=== PATIENT | female | born 1935 | race Caucasian/White ===

== ENCOUNTER 2025-02-19 06:38 | Inpatient (IN) ==
[2025-02-19] MEDS ORDERED: IOPAMIDOL 100 ML BOTTLE IV ONE (06:39)
[2025-02-19] MEDS: IPRATROPIUM/ALBUTEROL 3 ML AMPUL.NEB NEB ONE ×2 (06:57→08:18)
[2025-02-19] MEDS: methylPREDNISolone SOD SUCC 125 MG/2 ML VIAL IV ONE (07:04)
[2025-02-19] MEDS: MAGNESIUM SULFATE 2 GM/50 ML BAG IV ONE (07:04)
[2025-02-19] MEDS: 0.9 % SODIUM CHLORIDE 500 ML IV ONE (07:08)
[2025-02-19 07:53] LABS: ALT/SGPT 14 U/L (<40); AST/SGOT 22 U/L (<32); Albumin 3.4 gm/dL (3.2-5.2); Alkaline Phosphatase 95 U/L (39-117); Bilirubin,Total 0.2 mg/dL (0.1-1.0); Blood Urea Nitrogen 28 mg/dL (8-23); Calcium 9.6 mg/dL (8.6-10.4); Carbon Dioxide 28 mmol/L (22-30); Chloride 103 mmol/L (96-108); Globulin 3.3 gm/dL (2.2-3.7); Glomerular Filtration Rate 57; Glucose 126 mg/dL (70-105); Potassium 4.2 mmol/L (3.3-5.1); Sodium 144 mmol/L (133-145)
[2025-02-19 07:53] LABS: INR 0.9 (0.9-1.1); Prothrombin Time 12.6 sec (11.9-14.5)
[2025-02-19 07:54] LABS: Basophils # (Auto) 0.03 K/mcL (0.00-0.30); Basophils % (Auto) 0.1 % (0.0-2.0); Eosinophils # (Auto) 0.04 K/mcL (0.00-0.70); Eosinophils % (Auto) 0.1 % (0.0-7.0); Hematocrit 36.5 % (34.1-44.9); Hemoglobin 10.5 g/dL (11.2-15.7); Lymphocytes # (Auto) 2.05 K/mcL (1.50-4.80); Lymphocytes % (Auto) 7.5 % (15.5-49.0); Mean Cell Volume 87.3 fL (80.0-100.0); Mean Corpuscular HGB Conc 28.8 g/dL (31.0-36.0); Mean Platelet Volume 12.6 fL (8.8-12.5); Monocytes # (Auto) 2.06 K/mcL (0.10-0.90); Monocytes % (Auto) 7.6 % (1.0-12.0); Neutrophils % (Auto) 80.6 % (38.0-78.0); Platelet Count 258 K/mcL (140-440); RBC 4.18 M/mcL (3.59-5.38); Red Cell Distribution Width 16.9 % (11.5-14.5); WBC 27.2 K/mcL (4.5-11.0)
[2025-02-19] MEDS: FUROSEMIDE 20 MG/2 ML VIAL IV ONE (08:46)
[2025-02-19] MEDS: cefTRIAXone 2 GM in DEXTROSE 5% IN WATER 50 ML IV ONE (09:22)
[2025-02-19 09:26] LABS: Appearance,Urine Clear (Clear); Bilirubin,Urine Negative (Negative); Color,Urine Yellow; Glucose,Urine (UA) Negative (Negative); Ketones,Urine Negative (Negative); Leukocyte Esterase,Urine Negative /uL (Negative); Nitrate,Urine Negative (Negative); PH,Urine 5.5 (5.0-9.0); Protein,Urine Negative (Negative); Specific Gravity,Urine 1.015 (1.000-1.035); Urine Blood Trace-lysed ery/mcL (Negative); Urine Hyaline Cast 25 /lph (0-2); Urine RBC 0 /hpf (0-3); Urine Squamous Epithelial Cell 0 /hpf (0-4); Urine WBC 0 /hpf (0-4); Urobilinogen,Urine Normal
[2025-02-19] MEDS: AZITHROMYCIN 500 MG in 0.9 % SODIUM CHLORIDE 250 ML IV ONE (09:53)
[2025-02-19] MEDS: DEXAMETHASONE 10 MG/ML VIAL IV ONE (11:02)
[2025-02-19] MEDS ORDERED: guaiFENesin/DEXTROMETHORPHAN 5ML UD CUP PO PRN (11:59)
[2025-02-19] MEDS ORDERED: ONDANSETRON 4 MG/2 ML VIAL IV PRN (11:59)
[2025-02-19] MEDS ORDERED: LACTULOSE 20 GM/30 ML ORAL.SOL PO PRN (11:59)
[2025-02-19] MEDS ORDERED: SENNOSIDES 1 TABLET PO PRN (11:59)
[2025-02-19] MEDS: LEVALBUTEROL 1.25 MG/3 ML AMPUL.NEB NEB SCH (12:04)
[2025-02-19] MEDS: REMDESIVIR 200 MG in 0.9 % SODIUM CHLORIDE 250 ML IV ONE (12:17)
[2025-02-19] MEDS: PIPERACILLIN SODIUM/TAZOBACTAM 3.375 GM in DEXTROSE 5% IN WATER 50 ML IV SCH (13:07)
[2025-02-19] MEDS ORDERED: ALBUTEROL SULFATE 60 PUFF INHALER INH PRN (13:37)
[2025-02-19] MEDS ORDERED: PANTOPRAZOLE 40 MG TABLET PO PRN (13:41)
[2025-02-19] MEDS: FUROSEMIDE 40 MG/4 ML VIAL IV SCH (14:46)
[2025-02-19] MEDS: 0.9 % SODIUM CHLORIDE 10 ML SYRINGE IV SCH (15:01)
[2025-02-19] MEDS ORDERED: 0.9 % SODIUM CHLORIDE 10 ML SYRINGE IV PRN (16:11)
[2025-02-19] MEDS: PIPERACILLIN SODIUM/TAZOBACTAM 3.375 GM in DEXTROSE 5% IN WATER 100 ML IV SCH (17:22)
[2025-02-19] MEDS: ACETAMINOPHEN 325 MG TABLET PO PRN (17:22)
[2025-02-19] MEDS: PANTOPRAZOLE 40 MG VIAL IV SCH (17:22)
[2025-02-19] MEDS: METOPROLOL TARTRATE 5 MG/5 ML VIAL IV SCH (17:42)
[2025-02-19] MEDS: METOPROLOL TARTRATE 5 MG/5 ML VIAL IV ONE (17:55)
[2025-02-19] MEDS: DILTIAZEM 125 MG/25 ML VIAL IV ONE (18:33)
[2025-02-19] MEDS ORDERED: DILTIAZEM 125 MG in DEXTROSE 5% IN WATER 100 ML IV PRN ×2 (19:27→19:30)
[2025-02-19] MEDS: DILTIAZEM 125 MG in DEXTROSE 5% IN WATER 100 ML IV SCH (20:53)
[2025-02-19] MEDS: APIXABAN 5 MG TABLET PO SCH (21:00)
[2025-02-19] MEDS: DOCUSATE SODIUM 100 MG CAPSULE PO SCH (21:00)
[2025-02-19] MEDS ORDERED: HEPARIN 10 UNITS/ML 5ML FLUSH IV SCH ×3 (21:00)
[2025-02-19] MEDS: FUROSEMIDE 20 MG TABLET PO SCH (21:00)
[2025-02-19] MEDS ORDERED: 0.9 % SODIUM CHLORIDE 10 ML SYRINGE IV SCH ×3 (21:00)
[2025-02-19] MEDS: FLUTICASONE/SALMETEROL 500/50 INHALER #14 INH SCH (21:01)
[2025-02-20 06:06] LABS: ALT/SGPT 11 U/L (<40); AST/SGOT 16 U/L (<32); Albumin 2.9 gm/dL (3.2-5.2); Alkaline Phosphatase 76 U/L (39-117); Bilirubin,Total < 0.2 mg/dL (0.1-1.0); Blood Urea Nitrogen 28 mg/dL (8-23); Calcium 8.7 mg/dL (8.6-10.4); Carbon Dioxide 33 mmol/L (22-30); Chloride 101 mmol/L (96-108); Globulin 2.8 gm/dL (2.2-3.7); Glomerular Filtration Rate 50; Glucose 116 mg/dL (70-105); Phosphorous 3.2 mg/dL (2.5-4.5); Potassium 3.9 mmol/L (3.3-5.1); Sodium 141 mmol/L (133-145)
[2025-02-20] MEDS: POTASSIUM CHLORIDE 10 MEQ TABLET PO SCH (07:22)
[2025-02-20] MEDS: PANTOPRAZOLE 40 MG TABLET PO SCH (07:31)
[2025-02-20 07:37] LABS: Basophils # (Auto) 0.04 K/mcL (0.00-0.30); Basophils % (Auto) 0.3 % (0.0-2.0); Eosinophils # (Auto) 0 K/mcL (0.00-0.70); Eosinophils % (Auto) 0 % (0.0-7.0); Hemoglobin 8.8 g/dL (11.2-15.7); Lymphocytes # (Auto) 0.76 K/mcL (1.50-4.80); Lymphocytes % (Auto) 4.9 % (15.5-49.0); Mean Cell Volume 84.3 fL (80.0-100.0); Mean Corpuscular HGB Conc 29.3 g/dL (31.0-36.0); Monocytes # (Auto) 1.04 K/mcL (0.10-0.90); Monocytes % (Auto) 6.6 % (1.0-12.0); Neutrophils % (Auto) 85.8 % (38.0-78.0); Platelet Count 200 K/mcL (140-440); RBC 3.56 M/mcL (3.59-5.38); Red Cell Distribution Width 16.9 % (11.5-14.5); WBC 15.7 K/mcL (4.5-11.0)
[2025-02-20] MEDS ORDERED: 0.9 % SODIUM CHLORIDE 10 ML SYRINGE IV PRN ×2 (07:41→11:00)
[2025-02-20] MEDS ORDERED: ALTEPLASE 2 MG VIAL IV PRN (07:41)
[2025-02-20] MEDS ORDERED: ENOXAPARIN 40 MG/0.4 ML SYRINGE SQ SCH (09:00)
[2025-02-20] MEDS: DEXAMETHASONE 4 MG TABLET PO SCH (09:20)
[2025-02-20] MEDS: METOPROLOL SUCCINATE 50 MG TAB.XL.24H PO SCH (09:21)
[2025-02-20] MEDS: 0.9 % SODIUM CHLORIDE 10 ML SYRINGE IV SCH (09:26)
[2025-02-20] MEDS: TIOTROPIUM BROMIDE 18 MCG INHALANT INH SCH (09:31)
[2025-02-20] MEDS: HEPARIN 10 UNITS/ML 5ML FLUSH IV SCH ×2 (10:22→10:30)
[2025-02-20] MEDS: REMDESIVIR 100 MG in 0.9 % SODIUM CHLORIDE 250 ML IV SCH (10:28)
[2025-02-20] MEDS ORDERED: LIDOCAINE 1% 10 ML VIAL SQ ONE (11:45)
[2025-02-20] MEDS: IPRATROPIUM/ALBUTEROL 3 ML AMPUL.NEB NEB PRN (15:22)
[2025-02-20] MEDS: IPRATROPIUM/ALBUTEROL 3 ML AMPUL.NEB NEB SCH (18:52)
[2025-02-20] MEDS ORDERED: 0.9 % SODIUM CHLORIDE 10 ML SYRINGE IV SCH (21:00)
[2025-02-20] MEDS: 0.9 % SODIUM CHLORIDE 10 ML SYRINGE IV PRN (22:13)
[2025-02-21 05:55] LABS: C-Reactive Protein 5.1 mg/dL (0.03-0.80)
[2025-02-21 05:58] LABS: ALT/SGPT 11 U/L (<40); AST/SGOT 14 U/L (<32); Albumin 2.7 gm/dL (3.2-5.2); Alkaline Phosphatase 70 U/L (39-117); Bilirubin,Direct < 0.2 mg/dL (0-0.3); Bilirubin,Total 0.2 mg/dL (0.1-1.0); Blood Urea Nitrogen 29 mg/dL (8-23); Calcium 8.9 mg/dL (8.6-10.4); Carbon Dioxide 33 mmol/L (22-30); Chloride 106 mmol/L (96-108); Globulin 2.6 gm/dL (2.2-3.7); Glomerular Filtration Rate 57; Glucose 96 mg/dL (70-105); Lactate Dehydrogenase 172 U/L (135-225); Potassium 3.7 mmol/L (3.3-5.1); Sodium 147 mmol/L (133-145); Triglycerides 31 mg/dL (<150); Uric Acid 4.1 mg/dL (2.5-8.0)
[2025-02-21 08:38] LABS: Basophils # (Auto) 0.04 K/mcL (0.00-0.30); Basophils % (Auto) 0.4 % (0.0-2.0); Eosinophils # (Auto) 0 K/mcL (0.00-0.70); Eosinophils % (Auto) 0 % (0.0-7.0); Hematocrit 29.3 % (34.1-44.9); Hemoglobin 8.4 g/dL (11.2-15.7); Lymphocytes # (Auto) 0.95 K/mcL (1.50-4.80); Lymphocytes % (Auto) 8.7 % (15.5-49.0); Mean Cell Volume 87.2 fL (80.0-100.0); Mean Corpuscular HGB Conc 28.7 g/dL (31.0-36.0); Mean Platelet Volume 12.5 fL (8.8-12.5); Monocytes # (Auto) 1.12 K/mcL (0.10-0.90); Monocytes % (Auto) 10.3 % (1.0-12.0); Neutrophils % (Auto) 74.9 % (38.0-78.0); Platelet Count 183 K/mcL (140-440); RBC 3.36 M/mcL (3.59-5.38); WBC 10.9 K/mcL (4.5-11.0)
[2025-02-21] MEDS: cefTRIAXone 1 GM VIAL IV SCH (09:01)
[2025-02-21] MEDS: DEXAMETHASONE 10 MG/ML VIAL IV SCH (09:01)
[2025-02-21] MEDS: AZITHROMYCIN 500 MG in DEXTROSE 5% IN WATER 250 ML IV SCH (09:02)
[2025-02-21] MEDS: 0.45 % SODIUM CHLORIDE 1,000 ML IV SCH (09:16)
[2025-02-21] MEDS: POTASSIUM CHLORIDE 20 MEQ TABLET PO SCH (09:16)
[2025-02-21 16:50] LABS: Sodium 143 mmol/L (133-145)
[2025-02-22 06:38] LABS: ALT/SGPT 11 U/L (<40); AST/SGOT 16 U/L (<32); Albumin 2.6 gm/dL (3.2-5.2); Alkaline Phosphatase 69 U/L (39-117); Bilirubin,Direct < 0.2 mg/dL (0-0.3); Bilirubin,Total 0.2 mg/dL (0.1-1.0); Blood Urea Nitrogen 23 mg/dL (8-23); Calcium 9.1 mg/dL (8.6-10.4); Carbon Dioxide 34 mmol/L (22-30); Chloride 107 mmol/L (96-108); Globulin 2.6 gm/dL (2.2-3.7); Glomerular Filtration Rate 77; Glucose 82 mg/dL (70-105); Lactate Dehydrogenase 183 U/L (135-225); Phosphorous 2.9 mg/dL (2.5-4.5); Potassium 4.3 mmol/L (3.3-5.1); Sodium 146 mmol/L (133-145); Triglycerides 39 mg/dL (<150); Uric Acid 4.3 mg/dL (2.5-8.0)
[2025-02-22 07:38] LABS: Basophils # (Auto) 0.05 K/mcL (0.00-0.30); Basophils % (Auto) 0.5 % (0.0-2.0); Eosinophils # (Auto) 0.07 K/mcL (0.00-0.70); Eosinophils % (Auto) 0.6 % (0.0-7.0); Hematocrit 30.2 % (34.1-44.9); Hemoglobin 8.5 g/dL (11.2-15.7); Lymphocytes # (Auto) 1.63 K/mcL (1.50-4.80); Lymphocytes % (Auto) 15.1 % (15.5-49.0); Mean Cell Volume 87.5 fL (80.0-100.0); Mean Corpuscular HGB Conc 28.1 g/dL (31.0-36.0); Mean Platelet Volume 11.4 fL (8.8-12.5); Monocytes # (Auto) 1.07 K/mcL (0.10-0.90); Monocytes % (Auto) 9.9 % (1.0-12.0); Platelet Count 199 K/mcL (140-440); RBC 3.45 M/mcL (3.59-5.38); WBC 10.8 K/mcL (4.5-11.0)
[2025-02-22] MEDS: 0.45 % SODIUM CHLORIDE 1,000 ML IV SCH (08:20)
[2025-02-22] MEDS: AZITHROMYCIN 250 MG TABLET PO SCH (08:20)
[2025-02-22] MEDS: ALTEPLASE 2 MG VIAL IV SCH (13:13)
[2025-02-22] MEDS: CEFDINIR 300 MG CAPSULE PO SCH (21:36)
[2025-02-23 05:58] LABS: Basophils # (Auto) 0.01 K/mcL (0.00-0.30); Basophils % (Auto) 0.1 % (0.0-2.0); Eosinophils # (Auto) 0.18 K/mcL (0.00-0.70); Eosinophils % (Auto) 1.6 % (0.0-7.0); Hematocrit 29.7 % (34.1-44.9); Hemoglobin 8.5 g/dL (11.2-15.7); Lymphocytes # (Auto) 1.81 K/mcL (1.50-4.80); Lymphocytes % (Auto) 15.8 % (15.5-49.0); Mean Cell Volume 87.6 fL (80.0-100.0); Mean Corpuscular HGB Conc 28.6 g/dL (31.0-36.0); Mean Platelet Volume 12.1 fL (8.8-12.5); Monocytes # (Auto) 1.08 K/mcL (0.10-0.90); Monocytes % (Auto) 9.4 % (1.0-12.0); Neutrophils % (Auto) 65.7 % (38.0-78.0); Platelet Count 215 K/mcL (140-440); RBC 3.39 M/mcL (3.59-5.38); Red Cell Distribution Width 16.9 % (11.5-14.5); WBC 11.5 K/mcL (4.5-11.0)
[2025-02-23 06:32] LABS: ALT/SGPT 13 U/L (<40); AST/SGOT 17 U/L (<32); Albumin 2.5 gm/dL (3.2-5.2); Alkaline Phosphatase 70 U/L (39-117); Bilirubin,Direct < 0.2 mg/dL (0-0.3); Bilirubin,Total 0.2 mg/dL (0.1-1.0); Blood Urea Nitrogen 19 mg/dL (8-23); Calcium 8.9 mg/dL (8.6-10.4); Carbon Dioxide 31 mmol/L (22-30); Chloride 105 mmol/L (96-108); Globulin 2.6 gm/dL (2.2-3.7); Glomerular Filtration Rate 81; Glucose 74 mg/dL (70-105); Lactate Dehydrogenase 200 U/L (135-225); Potassium 4.1 mmol/L (3.3-5.1); Sodium 143 mmol/L (133-145); Triglycerides 35 mg/dL (<150); Uric Acid 4.6 mg/dL (2.5-8.0)
[2025-02-24 05:51] LABS: ALT/SGPT 14 U/L (<40); AST/SGOT 13 U/L (<32); Albumin 2.5 gm/dL (3.2-5.2); Alkaline Phosphatase 71 U/L (39-117); Bilirubin,Direct < 0.2 mg/dL (0-0.3); Bilirubin,Total 0.2 mg/dL (0.1-1.0); Blood Urea Nitrogen 22 mg/dL (8-23); Carbon Dioxide 34 mmol/L (22-30); Chloride 105 mmol/L (96-108); Globulin 2.4 gm/dL (2.2-3.7); Glomerular Filtration Rate 77; Glucose 89 mg/dL (70-105); Lactate Dehydrogenase 176 U/L (135-225); Phosphorous 3.8 mg/dL (2.5-4.5); Potassium 4.5 mmol/L (3.3-5.1); Sodium 142 mmol/L (133-145); Triglycerides 27 mg/dL (<150); Uric Acid 4.6 mg/dL (2.5-8.0)
[2025-02-24 06:24] LABS: Basophils # (Auto) 0.04 K/mcL (0.00-0.30); Basophils % (Auto) 0.3 % (0.0-2.0); Eosinophils # (Auto) 0.11 K/mcL (0.00-0.70); Hematocrit 28.1 % (34.1-44.9); Lymphocytes # (Auto) 1.31 K/mcL (1.50-4.80); Lymphocytes % (Auto) 11.3 % (15.5-49.0); Mean Cell Volume 87.3 fL (80.0-100.0); Mean Corpuscular HGB Conc 28.5 g/dL (31.0-36.0); Mean Platelet Volume 11.5 fL (8.8-12.5); Monocytes # (Auto) 1.12 K/mcL (0.10-0.90); Monocytes % (Auto) 9.7 % (1.0-12.0); Neutrophils % (Auto) 71.7 % (38.0-78.0); Platelet Count 215 K/mcL (140-440); RBC 3.22 M/mcL (3.59-5.38); WBC 11.6 K/mcL (4.5-11.0)
[2025-02-24] MEDS: DEXAMETHASONE 4 MG TABLET PO SCH (08:55)
[2025-02-24 11:22] VITALS: TEMP 98.1; O2SAT 96
== END 2025-02-24 11:36 | DRG 190 ==
LOC: ED 06:38 → ICU 11:42
PROVIDERS: ADMIT Internal Medicine; ATTEND Student in an Organized Health Care Education/Training Program

== ENCOUNTER 2025-06-13 02:33 | Inpatient (IN) ==
[2025-06-13] MEDS ORDERED: IOPAMIDOL 100 ML BOTTLE IV ONE (02:34)
[2025-06-13] MEDS: ALBUTEROL SULFATE 2.5 MG/3 ML NEBULIZER NEB ONE (02:50)
[2025-06-13] MEDS: ONDANSETRON 4 MG/2 ML VIAL IV ONE (03:00)
[2025-06-13 03:20] LABS: ALT/SGPT 8 U/L (<40); AST/SGOT 16 U/L (<32); Albumin 3.6 gm/dL (3.2-5.2); Albumin/Globulin Ratio 1.3 (1.0-2.3); Alkaline Phosphatase 94 U/L (39-117); Anion Gap 7.0 (8.0-16.0); Bilirubin,Total 0.2 mg/dL (0.1-1.0); Blood Urea Nitrogen 25 mg/dL (8-23); Calcium 9.3 mg/dL (8.6-10.4); Carbon Dioxide 32 mmol/L (22-30); Chloride 106 mmol/L (96-108); Globulin 2.8 gm/dL (2.2-3.7); Glucose 148 mg/dL (70-105); Potassium 3.6 mmol/L (3.3-5.1); Sodium 145 mmol/L (133-145)
[2025-06-13 03:21] LABS: Basophils # (Auto) 0.04 K/mcL (0.00-0.30); Basophils % (Auto) 0.1 % (0.0-2.0); Eosinophils # (Auto) 0.25 K/mcL (0.00-0.70); Eosinophils % (Auto) 0.8 % (0.0-7.0); Hematocrit 32.6 % (34.1-44.9); Hemoglobin 8.9 g/dL (11.2-15.7); Lymphocytes # (Auto) 2.81 K/mcL (1.50-4.80); Lymphocytes % (Auto) 8.7 % (15.5-49.0); Mean Corpuscular HGB Conc 27.3 g/dL (31.0-36.0); Monocytes # (Auto) 1.41 K/mcL (0.10-0.90); Monocytes % (Auto) 4.4 % (1.0-12.0); Neutrophils % (Auto) 85.7 % (38.0-78.0); Platelet Count 231 K/mcL (140-440); RBC 4.09 M/mcL (3.59-5.38); WBC 32.2 K/mcL (4.5-11.0)
[2025-06-13] MEDS: 0.9 % SODIUM CHLORIDE 1,000 ML IV ONE ×3 (03:34→09:54)
[2025-06-13] MEDS: ACETAMINOPHEN 650 MG/65 ML BAG IV ONE (03:50)
[2025-06-13] MEDS: PIPERACILLIN SODIUM/TAZOBACTAM 3.375 GM in DEXTROSE 5% IN WATER 50 ML IV ONE ×2 (04:30→15:24)
[2025-06-13] MEDS: VANCOMYCIN 1,500 MG in 0.9 % SODIUM CHLORIDE 500 ML IV ONE (05:04)
[2025-06-13] MEDS: KETOROLAC 15 MG/ML VIAL IV ONE (05:40)
[2025-06-13 08:26] LABS: Bacteria,Urine Rare /hpf (0); Bilirubin,Urine NEGATIVE (Negative); Color,Urine LT. YELLOW; Glucose,Urine (UA) NEGATIVE (Negative); Ketones,Urine NEGATIVE (Negative); Leukocyte Esterase,Urine SMALL /uL (Negative); PH,Urine 5.5 (5.0-9.0); Protein,Urine NEGATIVE (Negative); Specific Gravity,Urine <= 1.005 (1.000-1.035); Urobilinogen,Urine 0.2 mg/dL
[2025-06-13] MEDS ORDERED: LACTULOSE 20 GM/30 ML ORAL.SOL PO PRN (08:39)
[2025-06-13] MEDS ORDERED: SENNOSIDES 1 TABLET PO PRN ×2 (08:39→09:25)
[2025-06-13] MEDS ORDERED: ONDANSETRON 4 MG/2 ML VIAL IV PRN ×2 (08:39→09:25)
[2025-06-13] MEDS ORDERED: MAGNESIUM SULFATE 2 GM/50 ML BAG IV PRN (09:25)
[2025-06-13] MEDS ORDERED: METOCLOPRAMIDE 10 MG/2 ML VIAL IV PRN (09:25)
[2025-06-13] MEDS ORDERED: POTASSIUM CHLORIDE 20 MEQ TABLET PO PRN (09:25)
[2025-06-13] MEDS ORDERED: POTASSIUM CHLORIDE 40 MEQ in DEXTROSE 5% IN WATER 500 ML IV PRN (09:25)
[2025-06-13] MEDS ORDERED: PANTOPRAZOLE 40 MG TABLET PO PRN (09:32)
[2025-06-13 09:44] LABS: Anisocytosis 1+ (None Seen); Poikilocytosis 1+ (None Seen); RBC Morphology ABNORMAL (Normal)
[2025-06-13] MEDS: IPRATROPIUM/ALBUTEROL 3 ML AMPUL.NEB NEB PRN (09:44)
[2025-06-13] MEDS: 0.9 % SODIUM CHLORIDE 10 ML SYRINGE IV SCH (09:55)
[2025-06-13] MEDS: DOCUSATE SODIUM 100 MG CAPSULE PO SCH ×2 (10:29→20:12)
[2025-06-13] MEDS ORDERED: NOREPINEPHRINE 250 ML IV SCH (11:45)
[2025-06-13] MEDS ORDERED: NOREPINEPHRINE BITARTRATE 16 MG in 0.9 % SODIUM CHLORIDE 234 ML IV SCH (11:45)
[2025-06-13] MEDS: NOREPINEPHRINE 250 ML IV ONE (11:46)
[2025-06-13] MEDS: NOREPINEPHRINE 250 ML IV SCH (11:47)
[2025-06-13] MEDS: 0.9 % SODIUM CHLORIDE 250 ML IV SCH (11:47)
[2025-06-13] MEDS: PANTOPRAZOLE 40 MG TABLET PO SCH (13:04)
[2025-06-13] MEDS: APIXABAN 5 MG TABLET PO SCH (14:12)
[2025-06-13] MEDS: LACTATED RINGERS 1,000 ML IV ONE (16:39)
[2025-06-13] MEDS: PIPERACILLIN SODIUM/TAZOBACTAM 3.375 GM in DEXTROSE 5% IN WATER 100 ML IV SCH (20:12)
[2025-06-13] MEDS: FLUTICASONE/SALMETEROL 500/50 INHALER #14 INH SCH (20:15)
[2025-06-14 06:30] LABS: Hematocrit 24.7 % (34.1-44.9); Hemoglobin 6.8 g/dL (11.2-15.7); Mean Corpuscular HGB Conc 27.5 g/dL (31.0-36.0); Platelet Count 162 K/mcL (140-440); RBC 3.08 M/mcL (3.59-5.38); WBC 36.1 K/mcL (4.5-11.0)
[2025-06-14 06:38] LABS: ALT/SGPT 8 U/L (<40); AST/SGOT 15 U/L (<32); Albumin 3.0 gm/dL (3.2-5.2); Albumin/Globulin Ratio 1.2 (1.0-2.3); Alkaline Phosphatase 73 U/L (39-117); Anion Gap 6.0 (8.0-16.0); Bilirubin,Direct < 0.2 mg/dL (0-0.3); Bilirubin,Total 0.2 mg/dL (0.1-1.0); Blood Urea Nitrogen 21 mg/dL (8-23); Calcium 8.7 mg/dL (8.6-10.4); Carbon Dioxide 26 mmol/L (22-30); Chloride 108 mmol/L (96-108); Globulin 2.5 gm/dL (2.2-3.7); Glucose 108 mg/dL (70-105); Phosphorous 3.2 mg/dL (2.5-4.5); Potassium 4.1 mmol/L (3.3-5.1); Sodium 140 mmol/L (133-145); Triglycerides 30 mg/dL (<150); Uric Acid 3.3 mg/dL (2.5-8.0)
[2025-06-14] MEDS: 0.9 % SODIUM CHLORIDE 250 ML IV SCH (08:58)
[2025-06-14 09:46] LABS: Anisocytosis 2+ (None Seen); Poikilocytosis 1+ (None Seen); RBC Morphology ABNORMAL (Normal)
[2025-06-14] MEDS: ACETAMINOPHEN 325 MG TABLET PO PRN (10:03)
[2025-06-14] MEDS: TIOTROPIUM BROMIDE 18 MCG INHALANT INH SCH (10:30)
[2025-06-14] MEDS: FUROSEMIDE 20 MG/2 ML VIAL IV ONE (11:31)
[2025-06-14] MEDS: METOPROLOL TARTRATE 5 MG/5 ML VIAL IV PRN (13:42)
[2025-06-14] MEDS: MELATONIN 3 MG TABLET PO SCH (20:27)
[2025-06-15 06:20] LABS: ALT/SGPT 9 U/L (<40); AST/SGOT 17 U/L (<32); Albumin 3.0 gm/dL (3.2-5.2); Albumin/Globulin Ratio 1.0 (1.0-2.3); Alkaline Phosphatase 65 U/L (39-117); Anion Gap 8.0 (8.0-16.0); Bilirubin,Direct 0.3 mg/dL (<0.3); Bilirubin,Total 0.5 mg/dL (0.1-1.0); Blood Urea Nitrogen 20 mg/dL (8-23); Calcium 9.2 mg/dL (8.6-10.4); Carbon Dioxide 24 mmol/L (22-30); Chloride 108 mmol/L (96-108); Globulin 2.9 gm/dL (2.2-3.7); Glucose 109 mg/dL (70-105); Phosphorous 2.8 mg/dL (2.5-4.5); Potassium 3.8 mmol/L (3.3-5.1); Sodium 140 mmol/L (133-145); Triglycerides 56 mg/dL (<150); Uric Acid 3.1 mg/dL (2.5-8.0)
[2025-06-15 06:30] LABS: Basophils # (Auto) 0.03 K/mcL (0.00-0.30); Basophils % (Auto) 0.1 % (0.0-2.0); Eosinophils # (Auto) 0.06 K/mcL (0.00-0.70); Eosinophils % (Auto) 0.3 % (0.0-7.0); Hematocrit 37.6 % (34.1-44.9); Hemoglobin 10.9 g/dL (11.2-15.7); Lymphocytes # (Auto) 1.19 K/mcL (1.50-4.80); Lymphocytes % (Auto) 5.1 % (15.5-49.0); Mean Corpuscular HGB Conc 29.0 g/dL (31.0-36.0); Monocytes # (Auto) 1.35 K/mcL (0.10-0.90); Monocytes % (Auto) 5.8 % (1.0-12.0); Neutrophils % (Auto) 86.8 % (38.0-78.0); Platelet Count 137 K/mcL (140-440); RBC 4.58 M/mcL (3.59-5.38); WBC 23.3 K/mcL (4.5-11.0)
[2025-06-15] MEDS: ALBUMIN HUMAN 12.5 GM/50 ML VIAL IV ONE (10:08)
[2025-06-15] MEDS: FUROSEMIDE 40 MG/4 ML VIAL IV ONE ×2 (10:09→14:31)
[2025-06-15] MEDS: POLYETHYLENE GLYCOL 3350 17 GM PACKET PO PRN (12:33)
[2025-06-15] MEDS: METOPROLOL TARTRATE 5 MG/5 ML VIAL IV PRN (15:08)
[2025-06-16 06:30] LABS: ALT/SGPT 8 U/L (<40); AST/SGOT 13 U/L (<32); Albumin 3.0 gm/dL (3.2-5.2); Albumin/Globulin Ratio 1.2 (1.0-2.3); Alkaline Phosphatase 64 U/L (39-117); Anion Gap 7.0 (8.0-16.0); Bilirubin,Direct 0.3 mg/dL (<0.3); Bilirubin,Total 0.6 mg/dL (0.1-1.0); Blood Urea Nitrogen 17 mg/dL (8-23); Calcium 9.1 mg/dL (8.6-10.4); Carbon Dioxide 33 mmol/L (22-30); Chloride 104 mmol/L (96-108); Globulin 2.6 gm/dL (2.2-3.7); Glucose 87 mg/dL (70-105); Phosphorous 2.3 mg/dL (2.5-4.5); Potassium 3.2 mmol/L (3.3-5.1); Sodium 144 mmol/L (133-145); Triglycerides 50 mg/dL (<150); Uric Acid 3.0 mg/dL (2.5-8.0)
[2025-06-16 07:28] LABS: Basophils # (Auto) 0.04 K/mcL (0.00-0.30); Basophils % (Auto) 0.3 % (0.0-2.0); Eosinophils # (Auto) 0.20 K/mcL (0.00-0.70); Eosinophils % (Auto) 1.4 % (0.0-7.0); Hematocrit 34.7 % (34.1-44.9); Hemoglobin 10.5 g/dL (11.2-15.7); Lymphocytes # (Auto) 0.93 K/mcL (1.50-4.80); Lymphocytes % (Auto) 6.6 % (15.5-49.0); Mean Corpuscular HGB Conc 30.3 g/dL (31.0-36.0); Monocytes # (Auto) 1.13 K/mcL (0.10-0.90); Monocytes % (Auto) 8.0 % (1.0-12.0); Neutrophils % (Auto) 82.5 % (38.0-78.0); Platelet Count 156 K/mcL (140-440); RBC 4.44 M/mcL (3.59-5.38); WBC 14.2 K/mcL (4.5-11.0)
[2025-06-16] MEDS: METOPROLOL SUCCINATE 50 MG TAB.XL.24H PO SCH (08:48)
[2025-06-16] MEDS: FUROSEMIDE 40 MG/4 ML VIAL IV ONE (08:49)
[2025-06-16] MEDS: APIXABAN 2.5 MG TABLET PO SCH (08:49)
[2025-06-16] MEDS: POTASSIUM CHLORIDE 20 MEQ TABLET PO PRN (08:56)
[2025-06-16] MEDS: acetaZOLAMIDE SOD 500 MG VIAL IV ONE (09:25)
[2025-06-16] MEDS: FLU VACC TS2025-26(65YR UP)/PF 180 MCG/0.5 ML SYRINGE IM ONE (10:24)
[2025-06-16] MEDS: PNEUMOCOCCAL 23-VAL P-SAC VAC 0.5 ML SYRINGE IM ONE (10:25)
[2025-06-16] MEDS: FUROSEMIDE 40 MG/4 ML VIAL IV SCH (16:00)
[2025-06-16] MEDS: POTASSIUM PHOSPHATE 20 MEQ in DEXTROSE 5% IN WATER 250 ML IV ONE (16:00)
[2025-06-16] MEDS ORDERED: FUROSEMIDE 40 MG/4 ML VIAL IV ONE (16:00)
[2025-06-17 04:43] VITALS: TEMP 97.8
[2025-06-17 07:16] LABS: ALT/SGPT 9 U/L (<40); AST/SGOT 12 U/L (<32); Albumin 3.1 gm/dL (3.2-5.2); Albumin/Globulin Ratio 1.2 (1.0-2.3); Alkaline Phosphatase 63 U/L (39-117); Anion Gap 6.0 (8.0-16.0); Bilirubin,Total 0.5 mg/dL (0.1-1.0); Blood Urea Nitrogen 23 mg/dL (8-23); Calcium 9.3 mg/dL (8.6-10.4); Carbon Dioxide 32 mmol/L (22-30); Chloride 105 mmol/L (96-108); Globulin 2.5 gm/dL (2.2-3.7); Glucose 98 mg/dL (70-105); Potassium 3.8 mmol/L (3.3-5.1); Sodium 143 mmol/L (133-145)
[2025-06-17 08:54] LABS: Basophils # (Auto) 0.03 K/mcL (0.00-0.30); Basophils % (Auto) 0.2 % (0.0-2.0); Eosinophils # (Auto) 0.42 K/mcL (0.00-0.70); Eosinophils % (Auto) 3.2 % (0.0-7.0); Hematocrit 36.1 % (34.1-44.9); Hemoglobin 10.5 g/dL (11.2-15.7); Lymphocytes # (Auto) 0.95 K/mcL (1.50-4.80); Lymphocytes % (Auto) 7.2 % (15.5-49.0); Mean Corpuscular HGB Conc 29.1 g/dL (31.0-36.0); Monocytes # (Auto) 1.07 K/mcL (0.10-0.90); Monocytes % (Auto) 8.1 % (1.0-12.0); Neutrophils % (Auto) 80.3 % (38.0-78.0); Platelet Count 143 K/mcL (140-440); RBC 4.43 M/mcL (3.59-5.38); WBC 13.2 K/mcL (4.5-11.0)
[2025-06-17] MEDS: LISINOPRIL 5 MG TABLET PO SCH (09:08)
[2025-06-17] MEDS: SENNOSIDES/DOCUSATE SODIUM 1 TAB TABLET PO SCH (09:10)
[2025-06-17 10:07] VITALS: O2SAT 96
[2025-06-17 10:26] LABS: Phosphorous 3.2 mg/dL (2.5-4.5)
== END 2025-06-17 11:40 | DRG 177 ==
LOC: ED 02:33 → ICU 08:39
PROVIDERS: ADMIT Internal Medicine; ATTEND Internal Medicine